=== PATIENT | male | born 1965 | race African-American/Black ===

== ENCOUNTER 2020-10-03 11:10 | Emergency (ER) | payer OTHER ==
[2020-10-03 11:17] VITALS: BP 146/97; PULSE 89; RESP 18; TEMP 98.9
[2020-10-03] MEDS ORDERED: KETOROLAC 15 MG/ML 1 ML VIAL IM STA (11:35)
--- NOTE | 2020-10-03 11:44 | ED ---
General Adult HPI - General Chief complaint: Extremity Injury, Lower Stated complaint: Knee pain Time Seen by Provider: 10/03/20 11:18 Source: patient, RN notes reviewed Mode of arrival: ambulatory Limitations: no limitations - History of Present Illness Initial comments: 55-year-old male presents to the emergency room for a chief complaint of left knee pain. Patient reports that he woke up yesterday morning. He states he swung his legs over the side of the bed and did a "big morning stretch" where he stretches out his legs and arms as far as they can and he felt a pop in his left knee. Since that time he has had pain in the left knee. States he is able to walk on it but it is painful to bend. Patient denies any swelling elsewhere in the leg but does note that his knee feels somewhat swollen. He denies fevers or chills. Denies constitutional symptoms.Patient has no other complaints at this time including shortness of breath, chest pain, abdominal pain, nausea or vomiting, headache, or visual changes. - Related Data Allergies Allergy/AdvReac Type Severity Reaction Status Date / Time No Known Allergies Allergy Verified 10/03/20 11:13 Review of Systems ROS Statement: Those systems with pertinent positive or pertinent negative responses have been documented in the HPI. ROS Other: All systems not noted in ROS Statement are negative. Past Medical History Past Medical History: Diabetes Mellitus History of Any Multi-Drug Resistant Organisms: None Reported Past Surgical History: No Surgical Hx Reported Past Psychological History: No Psychological Hx Reported Smoking Status: Never smoker Past Alcohol Use History: Occasional Past Drug Use History: None Reported General Exam Limitations: no limitations General appearance: alert, in no apparent distress Head exam: Present: atraumatic, normocephalic, normal inspection Eye exam: Present: normal appearance, PERRL, EOMI. Absent: scleral icterus, conjunctival injection, periorbital swelling ENT exam: Present: normal exam, mucous membranes moist Neck exam: Present: normal inspection. Absent: tenderness, meningismus, lymphadenopathy Respiratory exam: Present: normal lung sounds bilaterally. Absent: respiratory distress, wheezes, rales, rhonchi, stridor Cardiovascular Exam: Present: regular rate, normal rhythm, normal heart sounds. Absent: systolic murmur, diastolic murmur, rubs, gallop, clicks GI/Abdominal exam: Present: soft, normal bowel sounds. Absent: distended, tenderness, guarding, rebound, rigid Extremities exam: Present: tenderness (minimal tenderness to the left anterior knee), normal capillary refill (cap refill < 2 seconds, dp pulse 2+ LLE), joint swelling (minimal edema left knee, no erythema or increased warmth). Absent: full ROM (Patient able to flex left knee about 45.), pedal edema, calf tenderness (no calf tenderness, negative Homans sign) Course Vital Signs 10/03/20 11:14 Temperature 98.9 F Pulse Rate 89 Respiratory 18 Rate Blood Pressure 146/97 O2 Sat by Pulse 99 Oximetry Medical Decision Making - Medical Decision Making 55-year-old male presents for left knee pain. Patient injured his knee when stretching and felt a pop. He has been painful since that time. States it is painful to bend but he is able to walk on it. No fevers at home. Exam reveals minimal edema without erythema or increased warmth. No evidence of infection. Patient has about 60 flexion of the left knee, full extension. Neurovascular status intact. X-ray was performed that shows mild to moderate narrowing of the medial tibiofemoral compartment and a large spur on the patella. Soft tissues appear unremarkable. Patient was given Toradol for pain and he did have improvement. He will discharged home with instructions to take anti- inflammatories such as Motrin. He'll be given a starter pack of Tylenol 3. He was given orthopedic follow-up. He was given an Quentin wrap. He will return to the emergency room for any worsening symptoms. I discussed this case with attending Dr. Arroyo who agrees with this assessment and treatment plan. Disposition Clinical Impression: Knee pain, left Disposition: HOME SELF-CARE Condition: Good Instructions (If sedation given, give patient instructions): Knee Sprain (ED) Additional Instructions: Please follow up with orthopedics. You may need MRI to evaluate ligament and s oft tissue. In the meantime take Motrin for pain. If pain is severe take Tylenol 3. Rest ice and elevate the left knee. Use Quentin wrap. Return to the emergency room for any worsening symptoms such as fevers or worsening pain. Is patient prescribed a controlled substance at d/c from ED?: No Referrals: Shara Maurice PAC [Primary Care Provider] - 1-2 days Rafael Galvan MD [STAFF PHYSICIAN] - 1-2 days Time of Disposition: 12:45
--- NOTE | 2020-10-03 12:27 | XR ---
EXAMINATION TYPE: XR knee complete LT DATE OF EXAM: 10/03/2020 CLINICAL HISTORY: Pain after stretching injury TECHNIQUE: Three views of the left knee are obtained. COMPARISON: None. FINDINGS: There is no acute fracture/dislocation evident in left knee. Mild to moderate narrowing me dial tibiofemoral compartment. Large spur from anterior superior patellar distal quadriceps tendon at tachment. The overlying soft tissue appears unremarkable. IMPRESSION: As above.
[2020-10-03] MEDS ORDERED: ACET/COD 300 MG/30 MG STARTER PACK 6 TAB BTL PO STA (12:46)
== END 2020-10-03 12:58 | disposition home or self-care (01) ==
LOC: EC 11:10
DX: S89.81XA Other specified injuries of right lower leg, initial encounter (principal); M76.892 Other specified enthesopathies of left lower limb, excluding foot; X50.1XXA Overexertion from prolonged static or awkward postures, initial encounter; Y93.89 Activity, other specified
CPT/HCPCS: 73562; 96372; 99283; J1885

== ENCOUNTER 2021-03-04 03:52 | Emergency (ER) | payer OTHER ==
[2021-03-04 04:05] VITALS: BP 161/88; PULSE 96; RESP 18; TEMP 99.3
--- NOTE | 2021-03-04 04:15 | ED ---
Extremity Problem HPI - General Chief complaint: Extremity Injury, Upper Stated complaint: R hand pain Time Seen by Provider: 03/04/21 03:58 Source: patient, RN notes reviewed, old records reviewed Mode of arrival: ambulatory Limitations: no limitations - History of Present Illness Initial comments: This is a 35-year-old male DF for evaluation patient Dese for evaluation of his right hand pain. Patient usually hammer at work. Patient has history of hand fracture concern for fracture symptoms for 2 days. Patient does note that the swelling is much improved than it was prior. Otherwise no injuries or complaints patient's taking Motrin and Tylenol for pain MD Complaint: extremity pain, extremity swelling -: days(s) (2) Location: right History of Same: Yes -: Yes arthralgia Radiation: proximal Severity scale (1-10): 7 Quality: aching Consistency: constant Improves with: nothing Worsens with: nothing Associated Symptoms: denies other symptoms - Related Data Allergies Allergy/AdvReac Type Severity Reaction Status Date / Time No Known Allergies Allergy Verified 03/04/21 04:05 Review of Systems ROS Statement: Those systems with pertinent positive or pertinent negative responses have been documented in the HPI. ROS Other: All systems not noted in ROS Statement are negative. Past Medical History Past Medical History: Diabetes Mellitus History of Any Multi-Drug Resistant Organisms: None Reported Past Surgical History: No Surgical Hx Reported Past Psychological History: No Psychological Hx Reported Smoking Status: Never smoker Past Alcohol Use History: Occasional Past Drug Use History: None Reported General Exam Limitations: no limitations General appearance: alert, in no apparent distress Head exam: Present: atraumatic, normocephalic, normal inspection Eye exam: Present: normal appearance, PERRL, EOMI. Absent: scleral icterus, conjunctival injection, periorbital swelling ENT exam: Present: normal exam, mucous membranes moist Neck exam: Present: normal inspection. Absent: tenderness, meningismus, lymphadenopathy Respiratory exam: Present: normal lung sounds bilaterally. Absent: respiratory distress, wheezes, rales, rhonchi, stridor Cardiovascular Exam: Present: regular rate, normal rhythm, normal heart sounds. Absent: systolic murmur, diastolic murmur, rubs, gallop, clicks GI/Abdominal exam: Present: soft, normal bowel sounds. Absent: distended, tenderness, guarding, rebound, rigid Extremities exam: Present: normal inspection, full ROM, normal capillary refill, other (Right hand swelling no significant tenderness). Absent: tenderness, pedal edema, joint swelling, calf tenderness Back exam: Present: normal inspection Neurological exam: Present: alert, oriented X3, CN II-XII intact Psychiatric exam: Present: normal affect, normal mood Skin exam: Present: warm, dry, intact, normal color. Absent: rash Course Vital Signs 03/04/21 04:02 Temperature 99.3 F Pulse Rate 96 Respiratory 18 Rate Blood Pressure 161/88 O2 Sat by Pulse 97 Oximetry - Reevaluation(s) Reevaluation #1: medical record is reviewed patient has improved symptoms here in the ER patient informed of results and questions answered patient feels good for discharge Medical Decision Making - Medical Decision Making 52 female DF for hand pain. Patient punched a screw using a hand as a hammer which she has done before and had fractures that have been symptoms began 2 days ago symptoms improved now - Radiology Data Radiology results: report reviewed (X-ray hand negative for traumatic injury), image reviewed Disposition Clinical Impression: Right hand pain, Hand contusion Disposition: HOME SELF-CARE Condition: Good Instructions (If sedation given, give patient instructions): Contusion in Adults (ED) Is patient prescribed a controlled substance at d/c from ED?: No Referrals: None,Stated [Primary Care Provider] - 1-2 days
--- NOTE | 2021-03-04 05:08 | XR ---
EXAM: XR Right Hand Complete, 3 or More Views CLINICAL HISTORY: ITS.REASON XR Reason: pain. Pt injured right hand while working on car. TECHNIQUE: Frontal, lateral and oblique views of the right hand. COMPARISON: None FINDINGS: Bones/joints: Irregularity of the aspect of the right third and fourth metacarpals may be secondary to age-indeterminate fracture deformity. Osteopenia. Old fracture deformity of the right fifth metacarpal. Degenerative changes of the radial ulnar joint. Mild degenerative changes of the right first MCP joint. Soft tissues: Soft tissue swelling. IMPRESSION: Irregularity of the aspect of the right third and fourth metacarpals may be secondary to age-indeterminate fracture deformity. Further evaluation could be performed with CT or MRI if clinically indicated.
== END 2021-03-04 05:39 | disposition home or self-care (01) ==
LOC: EC 03:52
DX: S60.221A Contusion of right hand, initial encounter (principal); E11.9 Type 2 diabetes mellitus without complications; W22.8XXA Striking against or struck by other objects, initial encounter
CPT/HCPCS: 99283

== ENCOUNTER 2021-06-28 15:18 | Emergency (ER) | payer OTHER ==
--- NOTE | 2021-06-28 18:29 | ED ---
Extremity Problem HPI - General Chief complaint: Extremity Problem,Nontraumatic Stated complaint: R leg pain Source: patient, RN notes reviewed, old records reviewed Mode of arrival: wheelchair Limitations: no limitations - History of Present Illness Initial comments: 55-year-old pleasant male gentleman presents to the emergency room with complaints of 2 days of right knee pain. Patient states that his right foot has been swollen also but that is not why he is here. He complains of right knee pain that is worse with flexion. He states that the pain does shoot down from t he knee along the right lateral side. He does have relief with elevation but if he is elevated for to long it starts to get stiff. He denies any injury or fevers. He does have a history of diabetes. MD Complaint: extremity pain, joint pain -: days(s) (Right knee2) Location: right, knee History of Same: No Radiation: distal Severity scale (1-10): 7 Consistency: intermittent Improves with: elevation Worsens with: other (Bending or elevation for to long) Associated Symptoms: denies other symptoms - Related Data Previous Rx's Medication Instructions Recorded Ibuprofen [Motrin] 600 mg PO Q8HR PRN #30 tab 06/28/21 Allergies Allergy/AdvReac Type Severity Reaction Status Date / Time No Known Allergies Allergy Verified 06/28/21 15:32 Review of Systems ROS Statement: Those systems with pertinent positive or pertinent negative responses have been documented in the HPI. ROS Other: All systems not noted in ROS Statement are negative. Past Medical History Past Medical History: Diabetes Mellitus History of Any Multi-Drug Resistant Organisms: None Reported Past Surgical History: No Surgical Hx Reported Past Psychological History: No Psychological Hx Reported Smoking Status: Never smoker Past Alcohol Use History: Occasional Past Drug Use History: None Reported General Exam Limitations: no limitations General appearance: alert, in no apparent distress Head exam: Present: atraumatic, normocephalic, normal inspection Eye exam: Present: EOMI Neck exam: Absent: full ROM Cardiovascular Exam: Absent: tachycardia Extremities exam: Present: full ROM, pedal edema (Right foot). Absent: normal capillary refill, joint swelling, calf tenderness Right Knee exam: Present: tenderness, pain/laxity with varus, full knee extension. Absent: swelling, abrasion, laceration, ecchymosis, deformity, dislocation, erythema Ankle exam: Present: swelling. Absent: abrasion, laceration, ecchymosis, deformity, erythema Neurovascular tendon exam: Present: no vascular compromise. Absent: abnormal cap refill, extremity cold to touch, pallor, foot drop Gait: observed and limited by pain Neurological exam: Present: alert, oriented X3, abnormal gait (atalgia r/t right knee pain) Psychiatric exam: Present: normal affect, normal mood Skin exam: Present: warm, dry, intact, normal color. Absent: rash, cyanosis, diaphoretic, erythema, petechiae, pallor, mottled Course Vital Signs 06/28/21 06/28/21 06/28/21 15:33 20:00 20:05 Temperature 98.7 F 97.2 F L Pulse Rate 108 H 98 92 Respiratory 18 18 16 Rate Blood Pressure 164/87 147/99 147/90 O2 Sat by Pulse 96 100 100 Oximetry Medical Decision Making - Medical Decision Making Patient is able to ambulate and bear weight. X-ray of the right knee shows small knee joint effusion with mild degenerative changes. He was placed in a knee immobilizer and discharged to follow-up with orthopedics. Directed to rest ice elevate and use Motrin as needed. Disposition Clinical Impression: Knee pain, right Disposition: HOME SELF-CARE Condition: Good Instructions (If sedation given, give patient instructions): Knee Pain (ED) Additional Instructions: Rest, ice and elevate while at home. Use the knee immobilizer, take Motrin as prescribed. Follow-up with orthopedics next week. Return if any new or worsening symptoms. Prescriptions: Ibuprofen [Motrin] 600 mg PO Q8HR PRN #30 tab PRN Reason: Pain Is patient prescribed a controlled substance at d/c from ED?: No Referrals: Yadira Leung MD [Primary Care Provider] - 1-2 days Gabe Godoy PAC [PHYSICIAN OBSTETRICS GYNECOLOGY MD] - 1-2 days Time of Disposition: 19:35
--- NOTE | 2021-06-28 18:56 | XR ---
EXAMINATION TYPE: XR knee complete RT DATE OF EXAM: 06/28/2021 COMPARISON: NONE HISTORY: Knee pain for 3 days TECHNIQUE: 3 views FINDINGS: I see no fracture nor dislocation. Joint spaces are fairly normal. There is minor spurring of the femoral and tibial condyles. There is small knee joint effusion. IMPRESSION: No fracture. Mild degenerative changes. Small joint effusion
[2021-06-28] MEDS ORDERED: IBUPROFEN 800 MG TAB PO STA (19:57)
[2021-06-28 20:13] VITALS: BP 147/90; PULSE 92; RESP 16; TEMP 97.2
== END 2021-06-28 20:10 | disposition home or self-care (01) ==
LOC: EC 15:18
DX: M17.11 Unilateral primary osteoarthritis, right knee (principal); M25.461 Effusion, right knee; E11.9 Type 2 diabetes mellitus without complications
CPT/HCPCS: 99283

== ENCOUNTER → 2021-08-06 | Outpatient (CLI) | payer OTHER ==
--- NOTE | 2021-08-06 07:47 | MR ---
EXAMINATION TYPE: MR knee RT wo con DATE OF EXAM: 08/06/2021 COMPARISON: Right knee x-ray June 28, 2021 HISTORY: Right knee pain and swelling for 4 weeks. TECHNIQUE: Multiplanar, multisequence imaging of the right knee is performed without IV contrast. FINDINGS: MEDIAL MENISCUS: There is abnormal oblique and horizontal signal posterior horn extending towards joy tral body with likely extension to inferior articular surface coronal image 22 and sagittal image 8 a long the deep aspect. LATERAL MENISCUS: Anterior and posterior horns are intact CRUCIATE LIGAMENTS: The anterior and posterior cruciate ligaments are intact and unremarkable. COLLATERAL LIGAMENTS: The medial collateral ligament and lateral collateral ligament complex are inta ct. Mild fluid signal surrounds medial collateral ligament. EXTENSOR MECHANISM: Visualized quadriceps and patellar tendons are intact. EFFUSION: [id number]-[id number] size suprapatellar joint effusion there is heterogeneity suggesting syno vitis POPLITEAL CYST: No popliteal/west cyst. TRICOMPARTMENT SPACES: Mild to moderate tricompartment joint space loss greatest medial tibiofemoral compartment with mild spurring. CARTILAGE: Some cartilaginous loss medial tibial femoral compartment otherwise tricompartment cartila ge fairly well-maintained. BONE MARROW SIGNAL: Some overall heterogeneity with more focal T2 hyperintense signal or edema along the medial aspect of the medial tibial plateau. Possible serpiginous low T1 signal at this level sagi ttal image 5. OTHER: Mild subcutaneous edema anterior suprapatellar level noted. IMPRESSION: 1. Suspect small nondisplaced insufficiency fracture medial aspect medial tibial plateau with associa xander abnormal bone marrow edema at this level. 2. There is adjacent mild MCL sprain injury. 3. At least intrasubstance but suspected full-thickness tear posterior horn medial meniscus extending toward central body. 4. Infy-[id number]-rwrjcgje tricompartment degenerative changes greatest medial tibiofemoral compartment as d etailed above. 5. Small to moderate size joint effusion with suggestion of underlying synovitis.
== END | disposition home or self-care (01) ==
LOC: RADMRIMAIN 06:53
PROVIDERS: ATTEND Orthopaedic Surgery
DX: M17.11 Unilateral primary osteoarthritis, right knee (principal); S83.241A Other tear of medial meniscus, current injury, right knee, initial encounter

== ENCOUNTER → 2022-04-07 | Outpatient (CLI) | payer OTHER ==
[2022-04-07 12:26] VITALS: BMI 35.9
== END ==
LOC: EDSTATUS 11:00 → DBWHC3 11:06
PROVIDERS: ATTEND Family Medicine
DX: E11.65 Type 2 diabetes mellitus with hyperglycemia (principal)
CPT/HCPCS: G0108 ×3

== ENCOUNTER 2022-06-30 08:39 | Emergency (ER) | payer OTHER ==
[2022-06-30 08:43] VITALS: BP 149/83; PULSE 82; RESP 22; TEMP 98.2
[2022-06-30] MEDS ORDERED: KETOROLAC 15 MG/ML 1 ML VIAL IM STA (08:45)
--- NOTE | 2022-06-30 08:53 | ED ---
Lower Extremity Injury HPI - General Chief Complaint: Extremity Injury, Lower Stated Complaint: lt leg pain Time Seen by Provider: 06/30/22 08:44 Source: patient, RN notes reviewed, old records reviewed Mode of arrival: ambulatory Limitations: no limitations - History of Present Illness Initial Comments: This is a well-appearing 56-year-old male who presents ambulatory to the emergency room with complaints of left knee pain. Patient states he struck his knee on a dresser 2 weeks ago. He has had continued pain however the swelling has gone down. He states he has been using Epsom salts. He does have some swelling and pain behind his left knee as well and is worsened with palpation and when he is up walking around at work. He has been able to bear weight. MD Complaint: knee injury -: week(s) (2) Worsens With: movement, palpation Context: direct blow (hit on dresser) Treatments Prior to Arrival: cold therapy, other (epson salt) - Related Data Home Medications Medication Instructions Recorded Confirmed Ascorbic Acid [Vitamin C] 1,000 mg PO DAILY 12/27/21 06/27/22 metFORMIN HCL [Glucophage] 850 mg PO BID 04/07/22 06/27/22 Atorvastatin [Lipitor] 20 mg PO HS 06/27/22 06/27/22 Multivitamin/Iron/Folic Acid 1 each PO DAILY 06/27/22 06/27/22 [Centrum Adults Tablet] Pioglitazone [Actos] 15 mg PO DAILY 06/27/22 06/27/22 Allergies Allergy/AdvReac Type Severity Reaction Status Date / Time No Known Allergies Allergy Verified 06/30/22 08:43 Review of Systems ROS Statement: Those systems with pertinent positive or pertinent negative responses have been documented in the HPI. ROS Other: All systems not noted in ROS Statement are negative. Past Medical History Past Medical History: Diabetes Mellitus, Hyperlipidemia, Osteoarthritis (OA) History of Any Multi-Drug Resistant Organisms: None Reported Past Surgical History: No Surgical Hx Reported Past Anesthesia/Blood Transfusion Reactions: No Reported Reaction Past Psychological History: No Psychological Hx Reported Smoking Status: Never smoker Past Alcohol Use History: Occasional Past Drug Use History: None Reported - Past Family History Mother Family Medical History: CVA/TIA, Diabetes Mellitus Sister(s) Family Medical History: Cancer General Exam Limitations: no limitations General appearance: alert, in no apparent distress Respiratory exam: Absent: respiratory distress, accessory muscle use Cardiovascular Exam: Present: regular rate Left Knee exam: Present: tenderness, swelling (Minimal suprapatellar, swelling behind the knee consistent with Delacruz's cyst), full knee extension. Absent: erythema Lower Leg exam: Present: tenderness (Proximal fibula) Ankle exam: Absent: tenderness, swelling Foot/Toe exam: Absent: tenderness, swelling Neurovascular tendon exam: Present: no vascular compromise. Absent: abnormal cap refill, extremity cold to touch, pallor, foot drop Neurological exam: Present: alert, oriented X3, normal gait Psychiatric exam: Present: normal affect, normal mood Skin exam: Present: warm, dry, normal color. Absent: cyanosis, diaphoretic Course Vital Signs 06/30/22 08:40 Temperature 98.2 F Pulse Rate 82 Respiratory 22 Rate Blood Pressure 149/83 O2 Sat by Pulse 98 Oximetry Medical Decision Making - Medical Decision Making X-ray shows no evidence of fracture to left knee, or tibia-fibula. There is redemonstration of a periosteal reaction along the medial and lateral aspect of the proximal tibial metaphysis. No acute osseous pathology. Mild osteoarthritic changes. No calf tenderness, pedal pulses are present. There is swelling behind the knee consistent with a delacruz's cyst. Instructed to wear an quentin wrap for compression and take Tylenol and Motrin as needed for pain. Follow-up with his primary care doctor this week. Case discussed with Dr. Zavala. Disposition Clinical Impression: Knee pain, left Disposition: HOME SELF-CARE Condition: Good Instructions (If sedation given, give patient instructions): Knee Pain (ED) Additional Instructions: Rest, ice, elevate and wear Quentin wrap for compression. Follow-up with the primary care doctor this week. Tylenol and Motrin as needed for pain. Is patient prescribed a controlled substance at d/c from ED?: No Referrals: Yadira Leung MD [Primary Care Provider] - 1-2 days Time of Disposition: 10:10
--- NOTE | 2022-06-30 09:34 | XR ---
EXAMINATION TYPE: XR tibia fibula LT DATE OF EXAM: 06/30/2022 9:22 AM INDICATION: Patient age:Male; 56 years old; Reason for study: pain proximal; PHH. COMPARISON: Left knee radiograph 06/30/2022, 10/03/2020. TECHNIQUE: The left tibia/fibula was examined in AP and lateral projections. FINDINGS: No evidence of any acute osseous pathology, joint dislocation, or soft tissue swelling is n oted. Redemonstration of periosteal reaction along the medial and lateral aspect of the proximal tibi al metaphysis. No radiopaque foreign bodies. No soft tissue gas. IMPRESSION: 1. No evidence of acute fracture. 2. Redemonstration of periosteal reaction along the medial and lateral aspect of the proximal tibial metaphysis. This can be further evaluated with CT as clinically indicated.
--- NOTE | 2022-06-30 09:36 | XR ---
EXAMINATION TYPE: XR knee complete LT DATE OF EXAM: 06/30/2022 9:22 AM INDICATION: Patient age:Male; 56 years old; Reason for study: pain; PHH. COMPARISON: Left knee radiograph 10/03/2020, left tibia/fibular radiograph 06/30/2022. TECHNIQUE: The Left knee(s) was examined in 3 projections. Frontal, lateral and oblique. FINDINGS: No evidence of any acute osseous pathology or joint effusion. Mild joint space narrowing of the medial tibiofemoral and patellar compartments. Large spur from anterior superior patellar dist al quadriceps tendon attachment. Periosteal reaction involving the medial and lateral aspects of the proximal tibial metaphysis redemonstrated. IMPRESSION: 1. No acute osseous pathology. 2. Mild osteoarthritic changes. 3. Redemonstration of periosteal reaction involving the proximal tibia.
== END 2022-06-30 10:42 | disposition home or self-care (01) ==
LOC: EC 08:39
DX: M25.562 Pain in left knee (principal); E11.9 Type 2 diabetes mellitus without complications; E78.5 Hyperlipidemia, unspecified; M19.90 Unspecified osteoarthritis, unspecified site; Z79.899 Other long term (current) drug therapy; Z79.84 Long term (current) use of oral hypoglycemic drugs; W22.03XA Walked into furniture, initial encounter
CPT/HCPCS: 99283 ×2; 73590; 73562; 96372; J1885